=== PATIENT | male | born 1995 | race Caucasian/White ===

== ENCOUNTER 2022-12-11 01:25 | Emergency (ER) | payer BC, OTHER ==
[~2022-12-11] VITALS: Ht 185.4 cm; Wt 124.7 kg
[~2022-12-11 01:25] MED LIST: [UNRECOGNIZED DRUG - OTHER]
[2022-12-11 01:33] VITALS: BP 119/78
--- NOTE | 2022-12-11 01:39 | NUR ---
pt to lobby
--- NOTE | 2022-12-11 02:38 | NUR ---
Dr. Wheatley examining patient.
[2022-12-11] MEDS ORDERED: ONDANSETRON 4 MG ODT PO ONE (02:50)
[2022-12-11] MEDS ORDERED: ACETAMINOPHEN EXTRA STRENGTH 500 MG TAB PO ONE (02:50)
[2022-12-11] MEDS ORDERED: CYCL-711 PO (03:00)
[2022-12-11] MEDS ORDERED: NAPR-54 PO (03:00)
[2022-12-11 03:08] VITALS: BP 119/78
--- NOTE | 2022-12-11 03:08 | NUR ---
Patient discharged with v/s stable. Written and verbal after care instructions given and explained. Patient alert, oriented and verbalized understanding of instructions. Ambulatory with steady gait. All questions addressed prior to discharge. ID band removed. Patient advised to follow up with PMD. Rx of NAPROSYN AND FLEXERIL given. Patient educated on indication of medication including possible reaction and side effects. Opportunity to ask questions provided and answered.
== END 2022-12-11 03:08 | disposition home or self-care (01) ==
LOC: MED 01:25
DX: S16.1XXA Strain of muscle, fascia and tendon at neck level, initial encounter (principal); V49.88XA Car occupant (driver) (passenger) injured in other specified transport accidents, initial encounter; Y93.89 Activity, other specified; Y92.89 Other specified places as the place of occurrence of the external cause; Y99.8 Other external cause status
CPT/HCPCS: 99283; Q0162